=== PATIENT | male | born 1945 | race Caucasian/White ===

== ENCOUNTER → 2024-05-25 10:47 | Outpatient (REF) | payer MEDICARE, SELFPAY | LOC: HWRAD 10:47 | PROVIDERS: ATTENDING PHYSICIAN Family Medicine | DX: M25.551 Pain in right hip (principal); M25.552 Pain in left hip; M25.561 Pain in right knee; M25.562 Pain in left knee | CPT/HCPCS: 73522; 73564 ==

== ENCOUNTER → 2024-06-24 10:03 | Outpatient (REF) | payer MEDICARE, SELFPAY | LOC: HWRCS 10:03 | PROVIDERS: ATTENDING PHYSICIAN Internal Medicine Cardiovascular Disease; FAMILY PHYSICIAN Family Medicine | DX: R06.02 Shortness of breath (principal) | CPT/HCPCS: 93306 ==

== ENCOUNTER → 2025-04-10 12:49 | Outpatient (REF) | payer MEDICARE, SELFPAY | LOC: MRI 3T 12:49 | PROVIDERS: ATTENDING PHYSICIAN Family Medicine | DX: R20.2 Paresthesia of skin (principal); M51.362 Other intervertebral disc degeneration, lumbar region with discogenic back pain and lower extremity pain; R29.818 Other symptoms and signs involving the nervous system | CPT/HCPCS: 72148 ==

== ENCOUNTER → 2025-04-15 09:29 | Outpatient (REF) | payer MEDICARE, SELFPAY | LOC: EMG 09:29 | PROVIDERS: ATTENDING PHYSICIAN Family Medicine | DX: R20.2 Paresthesia of skin (principal) | CPT/HCPCS: 95886; 95910 ==

== ENCOUNTER 2025-04-27 06:24 | Day surgery (SDC) | payer MEDICARE, SELFPAY | END 2025-04-27 10:17 | disposition home or self-care (01) | LOC: GI 06:24 | PROVIDERS: ATTENDING PHYSICIAN Student in an Organized Health Care Education/Training Program | DX: K62.5 Hemorrhage of anus and rectum (principal); K55.20 Angiodysplasia of colon without hemorrhage; K57.30 Diverticulosis of large intestine without perforation or abscess without bleeding; K62.7 Radiation proctitis; Y84.2 Radiological procedure and radiotherapy as the cause of abnormal reaction of the patient, or of later complication, without mention of misadventure at the time of the procedure; D12.2 Benign neoplasm of ascending colon; D12.4 Benign neoplasm of descending colon; K63.5 Polyp of colon; K62.1 Rectal polyp | CPT/HCPCS: 45385; 45380; 45382; 88305 ==

== ENCOUNTER → 2025-05-20 14:42 | Outpatient (REF) | payer MEDICARE, SELFPAY | LOC: HWRAD 14:42 | PROVIDERS: ATTENDING PHYSICIAN Internal Medicine Nephrology; FAMILY PHYSICIAN Family Medicine | DX: N18.1 Chronic kidney disease, stage 1 (principal) | CPT/HCPCS: 76770 ==

== ENCOUNTER 2025-05-23 06:22 | Emergency (ER) | payer MEDICARE, SELFPAY ==
[2025-05-23 06:31] VITALS: BP 134/78
--- NOTE | 2025-05-23 06:51 | ED.GENMED ---
History of Present Illness
General
Chief Complaint: Male Genito-Urinary Symptoms
Source: patient
Exam Limitations: none
Time Seen by Provider: 05/23/25 06:49
Nursing documentation reviewed up to this point in time: agreed with
History of Present Illness
History of Present Illness:
79-year-old male with history of HTN, HLD, prostate cancer with occasional urinary retention, prostatectomy who completed radiation therapy in September 2023. He reports experiencing one episode of urinary blockage associated with hematuria starting
a few months after treatment. Last night, he experienced a blockage with urinating blood with clots lasting about an hour to an hour and a half, which resolved on its own. However, at 4 a.m. today, he experienced another blockage characterized by
the inability to urinate, only passing drops or spritzes of blood. The last normal urination was around 1-2 a.m. He expresses discomfort, describing a sensation of being 'full of liquid.' Denies fever/chills/n/v.
Past History
Past History
ED Past Medical History: Cancer (Prostate CA), HTN and Hypercholesterolemia
ED Past Surgical History: Urological (Prostatectomy)
Social History
Tobacco: Non-smoker
Alcohol: None
Personal:
Living: with family
Review of Systems
Review of Systems
Allergies reviewed?: Yes
All Other Systems: ROS reviewed and negative except as documented in HPI and ROS
Constitutional: Denies fever or chills
: Reports bleeding and other (unable to urinate)
Phy Exam
Physical Exam
Physical Exam:
General: Alert, no acute distress.
Skin: Warm, dry.
Eyes, Ears, Nose, Mouth, and Throat: Oral mucosa moist.
Cardiovascular: Normal peripheral perfusion, no edema.
Respiratory: Respirations are non-labored.
Gastrointestinal: Abdomen nondistended. Tender suprapubic area. Normal BS
Back: Normal range of motion, normal alignment.
Musculoskeletal: Normal range of motion, normal strength. No edema
Neurological: Alert and oriented to person, place, time, and situation, no focal neurological deficit observed.
Psychiatric: Cooperative, appropriate mood & affect.
Course
Orders/Labs/Results
Orders:
Orders
05/23/25 06:57
CBI- Treatment PRN
Solution: NSS
Irrigate to Clear?: Yes
05/23/25 06:58
Bladder Scan- Treatment ONCE
05/23/25 07:02
Lidocaine 2% [Lidocaine Uro-Jet 2%] 1 syringe .ROUTE .STK-MED ONE
05/23/25 07:56
Complete Blood Count/With Diff Urgent
Comprehensive Metabolic Panel Urgent
Protime/PTT Urgent
05/23/25 08:29
US Renal With Bladder Urgent
Comment:
Reason For Exam: hematuria, retention
05/23/25 08:31
Urinalysis Reflex To Culture Urgent
Date Specimen was Collected: 05/23/25
Time Specimen was Collected: 08:25
Urine Microscopic Reflex Cult Urgent
05/23/25 09:19
Catheter- Indwelling As Directed
Reason for insertion: Acute Retention
Size: 22
Type: 3 way
Discontinue Date/Time: 05/26/25 0600
05/23/25 11:00
Tamsulosin [Flomax] 0.4 mg PO NOW STA
05/23/25 11:28
Tamsulosin [Flomax] 0.4 mg .ROUTE .STK-MED ONE
Abnormal Lab Results
05/23/25 05/23/25
07:56 08:31
RBC 4.08 L 10^6/uL
(4.70-6.10)
Hgb 11.8 L g/dL
(13.0-18.0)
Hct 35.1 L %
(39.0-52.0)
Absolute Lymphs (auto) 0.7 L 10^3/uL
(1.2-3.4)
Absolute Monos (auto) 0.7 H 10^3/uL
(0.1-0.6)
Neutrophils % 77.2 H %
(42.2-75.2)
Lymphocytes % 10.8 L %
(20.5-51.1)
Monocytes % 10.5 H %
(1.7-9.3)
BUN 26 H mg/dl
(9-20)
Creatinine 1.4 H mg/dL
(0.7-1.3)
Glucose 136 H mg/dl
(70-99)
Ur Occult Blood Reflex 4+ A
(Negative)
Urine RBC 90-100 A /HPF
(0-2)
Urine Bacteria (Reflex) Few A
(Negative)
Urine Albumin (Reflex) 1+ A
(Neg - Trace)
05/23/25 07:56
05/23/25 07:56
Vital Signs
Initial and Last Documented VS:
Initial Vital Signs
Temp Pulse Resp BP Pulse Ox
98.2 F 60 20 134/78 99
05/23/25 06:31 05/23/25 06:31 05/23/25 06:31 05/23/25 06:31 05/23/25 06:31
Last Documented Vital Signs
Temp Pulse Resp BP Pulse Ox
98.2 F 75 17 158/90 99
05/23/25 06:31 05/23/25 11:22 05/23/25 11:22 05/23/25 11:22 05/23/25 11:22
MDM/Problems Addressed
Differential Diagnosis Includes:
1. Radiation cystitis
2. Bladder stones
3. Urethral stricture
4. Bladder cancer
5. Prostate cancer recurrence
6. Benign prostatic hyperplasia
7. Urinary tract infection
8. Bladder outlet obstruction
9. Coagulation disorder
10. Post-radiation fibrosis
MDM/Problems Addressed:
79-year-old male with history of HTN, HLD, prostate cancer with occasional urinary retention, prostatectomy who completed radiation therapy in September 2023. He reports experiencing one episode of urinary blockage associated with hematuria starting
a few months after treatment. Last night, he experienced a blockage with urinating blood with clots lasting about an hour to an hour and a half, which resolved on its own. However, at 4 a.m. today, he experienced another blockage characterized by
the inability to urinate, only passing drops or spritzes of blood. The last normal urination was around 1-2 a.m. He expresses discomfort, describing a sensation of being 'full of liquid.' Denies fever/chills/n/v.
Plan:
- Conduct a bladder scan to assess the urinary blockage.
- Perform bladder irrigation and insert a three-way catheter to relieve symptoms.
- Continue bladder irrigation as needed.
- Facilitate urology consultation for further management.
7:50 a.m.
CBC: Hemoglobin 11.8, nothing to compare
CMP: BUN/creat 26/1.4 otherwise normal
U/A: No infection
10:45 a.m.
Renal and bladder US radiology report read: IMPRESSION: Simple cyst arising in the upper pole the right kidney. No other abnormality of the kidneys.
The bladder is not visualized, and the patient reportedly has a Li catheter. Findings suggest that the bladder is decompressed from the Li catheter.
Plan:
CBI is clear. Catheter to be left in place
Referred to urology.
Consulted Dr. Raphael who recommends Flomax and informing the patient he will have the catheter in for 5 to 7 days (done)
Pt is comfortable with plan
Pt stable for discharge
*Pulse Oximetry
SaO2: 99
Oxygen Mode of Delivery: Room air
Patient hypoxic: not evaluated
*Critical Care Note
Total Time (30-74mins, 75-104mins- exclusive of procedures): Not Applicable
ED Attending Note
-
Portions of this chart may have been created with voice recognition software.� Occasional wrong word or��sound alike� substitutions may have occurred due to the inherent limitations of voice recognition software.
Discharge Plan
Departure
Patient Disposition: Home (Routine Discharge)
Date of Disposition: 05/23/25
Time of Disposition: 10:49
Patient with high blood pressure during this ER visit?: No
Condition: Good
Discharge Problem:
Acute retention of urine, Hematuria
Instructions: How to Care for Your Li Catheter, Male, Blood in the Urine (Hematuria), Adult (DC), Urinary Retention (DC)
Prescriptions:
New
tamsulosin [Flomax] 0.4 mg capsule
0.4 mg PO DAILY Qty: 5 0RF
Referrals:
Wilbur Raphael MD [Active, Urology] - Call in 1-3 days for appt
Lopez Fisher DO [Family Provider, Family Practice]
Activity Restrictions/Additional Instructions:
As we discussed, call the urology office tomorrow, inform of today's visit and make next available appointment.
Interventions
Interventions:
*Risk Screen - Suicide Last Done: 05/23/25 06:31
*General Assessment Last Done: 05/23/25 06:31
*Neglect/Abuse Screening Last Done: 05/23/25 06:31
*ED- Fall Risk Assessment Last Done: 05/23/25 06:31
*ED COVID-19 Vaccine History Last Done: 05/23/25 06:31
*Nursing Disposition Last Done: 05/23/25 11:52
ED-Male Genitourinary Assessment Last Done: 05/23/25 08:57
Discharge Date and Time
Discharge Date/Time: 05/23/25 11:52
Print Language: KOSOVAN
[2025-05-23 08:05] LABS: Hematocrit 35.1 % (39.0-52.0); Hemoglobin 11.8 g/dL (13.0-18.0); Mean Corp Hgb Conc. 33.6 g/dL (33.0-37.0); Mean Corpuscular Volume 86.0 fL (80.0-94.0); Nucleated Red Blood Cells % 0 % (-); Platelet Count 219 10^3/uL (130-400); Red Cell Dist. Width 13.2 % (11.5-14.5)
[2025-05-23 08:18] LABS: ALT (SGPT) 24 U/L (0-50); AST (SGOT) 21 U/L (17-59); Albumin 4.2 g/dl (3.5-5.0); Alkaline Phosphatase 111 U/L (38-126); Blood Urea Nitrogen 26 mg/dl (9-20); Calcium 9.4 mg/dl (8.4-10.2); Carbon Dioxide 27 mmol/L (22-30); Chloride 107 mmol/L (98-107); Glucose 136 mg/dl (70-99); INR 0.99; PT 13.5 Sec (11.4-14.6); Potassium 4.7 mmol/L (3.5-5.1); Sodium 141 mmol/L (135-145); Total Protein 7.0 g/dl (6.3-8.2); eGFR 51.45
[2025-05-23 08:19] LABS: APTT 26.2 Sec (23.4-35.0)
[2025-05-23 08:46] LABS: Urine Character Slightly Cloudy (Clear)
--- NOTE | 2025-05-23 08:53 | EDRN ---
Pt c/o pressure in the suprapubic area. Irrigated 3 way catheter manually and removed numerous small blood clots. Pt tolerated procedure well. CBI restarted. Call ortiz within reach, instructed pt to notify nurse again if pressure of pain returns to
the suprapubic area. DOMESTIC FREIGHT FORWARDER made aware.
[2025-05-23 08:54] LABS: Urine Red Blood Cell 90-100 /HPF (0-2); Urine Squamous Cell 0-2 /LPF (Few)
[2025-05-23 09:00] VITALS: BP 131/70
[2025-05-23 11:22] VITALS: BP 158/90
[2025-05-23] MEDS: FLOMAX 0.4 MG PO (11:29)
== END 2025-05-23 11:52 | disposition home or self-care (01) ==
LOC: EMR 06:22
PROVIDERS: Registered Nurse; EMERGENCY PHYSICIAN Emergency Medicine; FAMILY PHYSICIAN Family Medicine
DX: R31.9 Hematuria, unspecified (principal); R33.9 Retention of urine, unspecified; N28.1 Cyst of kidney, acquired; I10 Essential (primary) hypertension; E78.00 Pure hypercholesterolemia, unspecified; M19.90 Unspecified osteoarthritis, unspecified site; Z85.46 Personal history of malignant neoplasm of prostate; Z90.79 Acquired absence of other genital organ(s); Z92.3 Personal history of irradiation
CPT/HCPCS: 99284; 51702; 51798; 76770; 80053; 81003; 81015; 85025; 85610; 85730

== ENCOUNTER 2025-05-26 08:33 | Emergency (ER) | payer MEDICARE, SELFPAY ==
[2025-05-26 08:43] VITALS: BP 136/78
--- NOTE | 2025-05-26 10:20 | ED.GENMED ---
History of Present Illness
General
Chief Complaint: Catheter/Tube Problem
Source: patient, records and spouse
Exam Limitations: none
Time Seen by Provider: 05/26/25 10:05
Nursing documentation reviewed up to this point in time: agreed with
History of Present Illness
History of Present Illness:
79-year-old male with history as noted presents to the ER for evaluation of Li catheter issue. Patient was seen a few days ago for urinary retention and hematuria and had a three-way Li catheter placed. He was placed on CBI and irrigated and
urine cleared up and he was ultimately discharged with a catheter in place with a plan for removal in 1 week. He was started on Flomax. His urologist also recommended he start Azo for some mild burning after catheter placed. He has been feeling
well, says that urine has been generally clear since initial insertion of the catheter without passage of additional clots. He says that prior to discharge StatLock was removed from the catheter in favor of tape as he was having some discomfort
with a StatLock; he says that over the past 24 hours he noticed that his catheter is starting to pull down and the tape was not adequately holding the catheter in place and especially when he stands up he notices pulling/burning due to catheter. He
did notice this morning that there was some slight leakage around the catheter and he came to the ER for assessment.
Past History
Past History
ED Past Medical History: Cancer (Prostate CA), HTN and Hypercholesterolemia
ED Past Surgical History: Urological (Prostatectomy)
Social History
Tobacco: Non-smoker
Alcohol: None
Personal:
Living: with family
Review of Systems
Review of Systems
All Other Systems: ROS reviewed and negative except as documented in HPI and ROS
Constitutional: Denies fever
ABD/GI: Denies abdominal pain
: Denies flank pain, bleeding or dark urine
Phy Exam
Physical Exam
Physical Exam:
General: Awake, alert; no acute distress
Head: Normocephalic, atraumatic
Eyes: Conjunctiva normal
Throat: Airway intact, handling secretions
Neck: Trachea midline
Lungs: Breathing comfortably with no distress
Heart: Regular rate
Abd: Soft, non distended, nontender
: Li catheter in place, orange-tinged urine in Li bag, no clots or sediment
Neuro: No gross deficits, ambulatory
Extremities: Warm and well-perfused
Scores
Heart Failure Risk
Heart Failure Risk Score: Not Applicable
Heart Score for Chest Pain Patients
STEMI patient?: Not applicable
Withdrawal Assessment of Alcohol
Withdrawal Assessment Completed?: Not applicable
Course
Orders/Labs/Results
Orders:
Orders
05/26/25 11:14
UA [Urinalysis] Urgent
Urine Culture Urgent
NARESH Source: Urine
Specimen Description:
CefTRIAXone [Rocephin] 1,000 mg Intramuscular Injection 0 ml IM ONCE
Vital Signs
Initial and Last Documented VS:
Initial Vital Signs
Temp Pulse Resp BP Pulse Ox
36.7 C 103 20 136/78 96
05/26/25 08:43 05/26/25 08:43 05/26/25 08:43 05/26/25 08:43 05/26/25 08:43
Last Documented Vital Signs
Temp Pulse Resp BP Pulse Ox
36.7 C 103 20 136/78 96
05/26/25 08:43 05/26/25 08:43 05/26/25 08:43 05/26/25 08:43 05/26/25 10:26
MDM/Problems Addressed
Differential Diagnosis Includes:
Li catheter issue
MDM/Problems Addressed:
79-year-old male presents with issue with his Li catheter. He is said to have it removed in a few days in the office with Dr. Raphael. He is not having any additional bleeding. Catheter flowing nicely. He does have some tugging of the
catheter�initially was discharged with a StatLock which was switched out for tape because the StatLock was bothering him. Tape came off and now he is having some tugging and today had some slight leaking around the catheter. Using [id number]
ultrasound I confirmed that the balloon was inflated in an appropriate position in the bladder. We then applied a StatLock to help hold the catheter secured to prevent future tugging or movement of the catheter. Patient was able to get up and move
around comfortably with this. I did offer to remove the catheter completely given he has not had additional hematuria but patient declined, wishes to leave in place pending urology consultation. I did speak with urology who agreed that catheter
should remain in place, recommending sending a urine culture and empirically treating with antibiotics as well as increasing Flomax. Recommended having patient call to expedite his appointment. He is stable for discharge at this point.
*Pulse Oximetry
SaO2: 96
Oxygen Mode of Delivery: Room air
Patient hypoxic: no (96%)
*Critical Care Note
Total Time (30-74mins, 75-104mins- exclusive of procedures): Not Applicable
Data Reviewed
Source: patient, records and spouse
Patient Management
Discussion with other providers: Batch Tester (Discussed with urology)
ED Attending Note
-
Portions of this chart may have been created with voice recognition software.� Occasional wrong word or��sound alike� substitutions may have occurred due to the inherent limitations of voice recognition software.
Discharge Plan
Departure
Patient Disposition: Home (Routine Discharge)
Date of Disposition: 05/26/25
Time of Disposition: 10:26
Patient with high blood pressure during this ER visit?: No
Discharge Problem:
Encounter for Li catheter fitting and adjustment
Instructions: How to Care for Your Li Catheter, Male
Prescriptions:
New
cefdinir 300 mg capsule
300 mg PO BID 7 Days Qty: 14 0RF
No Action
tamsulosin [Flomax] 0.4 mg capsule
0.4 mg PO DAILY Qty: 5 0RF
Referrals:
Wilbur Raphael MD [Family Provider, Urology] - Keep scheduled appt
Activity Restrictions/Additional Instructions:
Thank you for visiting the Emergency Department at [facility].
1. Please schedule a follow up appointment as directed. Call first thing tomorrow morning to make an appointment.
2. If indicated, please take your medications as instructed and indicated on discharge paperwork.
3. If any of your symptoms do not improve, or persist, or become more severe within 6-12 hours, please return to the emergency department for further care.
4. Please return to the emergency department if you develop a headache, neck pain/stiffness, fever greater than 100.4F, chest pain, shortness of breath, persistent nausea, vomiting, slurred speech, difficulty walking, numbness/tingling, weakness,
signs of infection or any other symptoms that are worrisome to you.
Please call [phone] if you have any questions.
Interventions
Interventions:
*Risk Screen - Suicide Last Done: 05/26/25 08:43
*General Assessment Last Done: 05/26/25 08:43
*Neglect/Abuse Screening Last Done: 05/26/25 10:36
*ED- Fall Risk Assessment Last Done: 05/26/25 10:36
*ED COVID-19 Vaccine History Last Done: 05/26/25 10:36
BW-Kahady-Azdgfkmipm Assessment Last Done: 05/26/25 10:36
ED-Male Genitourinary Assessment Last Done: 05/26/25 10:36
Discharge Date and Time
Print Language: SPANISH
[2025-05-26 10:38] VITALS: BMI 27.4
[2025-05-26] MEDS: ROCEPHIN 2.8571 MG IM (11:39)
[2025-05-26 11:59] LABS: Urine Character Clear (Clear)
[2025-05-26 12:01] LABS: Urine Squamous Cell 0-2 /LPF (Few)
== END 2025-05-26 11:43 | disposition home or self-care (01) ==
LOC: EMR 08:33
PROVIDERS: EMERGENCY PHYSICIAN Emergency Medicine; FAMILY PHYSICIAN Surgery
DX: Z46.6 Encounter for fitting and adjustment of urinary device (principal); I10 Essential (primary) hypertension; E78.00 Pure hypercholesterolemia, unspecified; Z90.79 Acquired absence of other genital organ(s)
CPT/HCPCS: 99282; 96374; 81003; 81015; 87077; 87086; 87186